=== PATIENT | female | born 1990 | race Caucasian/White ===

== ENCOUNTER 2020-07-15 09:55 | Emergency (ER) | payer OTHER ==
[2020-07-15 10:06] VITALS: BP 114/72; PULSE 78; RESP 16; TEMP 98.5
--- NOTE | 2020-07-15 10:08 | ED ---
General Adult HPI - General Source: patient, EMS Mode of arrival: EMS Limitations: no limitations <Robin Friend - Last Filed: 07/15/20 12:59> <Lesley Bryant - Last Filed: 07/22/20 00:02> - General Chief complaint: Nausea/Vomiting/Diarrhea Stated complaint: Vomiting Time Seen by Provider: 07/15/20 10:07 - History of Present Illness Initial comments: 30-year-old female with history of substance abuse presenting to the emergency department with chief complaint of nausea and vomiting. Patient states the last time she used heroin was about 2 days ago. States she also uses cocaine at the same time. Patient states she is currently at [facility] for substance abuse rehab. Patient states she is currently going through detox. States she has been vomiting for the past 2 days and barely had any fluid intake. Patient reports she has detox before and it felt just like this. Patient was brought to the ED via EMS and was given 4 mg of IV Zofran. (Robin Friend) - Related Data Home Medications Medication Instructions Recorded Confirmed No Known Home Medications 07/15/20 07/15/20 Allergies Allergy/AdvReac Type Severity Reaction Status Date / Time No Known Allergies Allergy Verified 07/15/20 10:28 Review of Systems ROS Other: All systems not noted in ROS Statement are negative. <Robin Friend - Last Filed: 07/15/20 12:59> ROS Other: All systems not noted in ROS Statement are negative. <Lesley Bryant - Last Filed: 07/22/20 00:02> ROS Statement: Those systems with pertinent positive or pertinent negative responses have been documented in the HPI. Past Medical History History of Any Multi-Drug Resistant Organisms: None Reported Smoking Status: Current every day smoker Past Alcohol Use History: None Reported Past Drug Use History: Cocaine, Heroin <Robin Friend - Last Filed: 07/15/20 12:59> General Exam Limitations: no limitations General appearance: alert, in no apparent distress Head exam: Present: atraumatic, normocephalic, normal inspection Eye exam: Present: normal appearance, PERRL, EOMI Pupils: Present: normal accommodation ENT exam: Present: normal exam, mucous membranes dry, mucous membranes moist Neck exam: Present: normal inspection, full ROM. Absent: tenderness Respiratory exam: Present: normal lung sounds bilaterally. Absent: respiratory distress, wheezes, rales Cardiovascular Exam: Present: regular rate, normal rhythm, normal heart sounds. Absent: systolic murmur, diastolic murmur GI/Abdominal exam: Present: soft. Absent: distended, tenderness, guarding, rebound Extremities exam: Present: normal inspection, full ROM. Absent: tenderness Back exam: Present: normal inspection, full ROM. Absent: tenderness, CVA tenderness (R), CVA tenderness (L) Neurological exam: Present: alert, oriented X3 Psychiatric exam: Present: normal affect, normal mood Skin exam: Present: warm, dry, intact, normal color <Robin Friend - Last Filed: 07/15/20 12:59> Course Vital Signs 07/15/20 09:58 Temperature 98.5 F Pulse Rate 78 Respiratory 16 Rate Blood Pressure 114/72 O2 Sat by Pulse 98 Oximetry Medical Decision Making - Lab Data Result diagrams: 07/15/20 10:39 07/15/20 10:39 <Robin Friend - Last Filed: 07/15/20 12:59> - Lab Data Result diagrams: 07/15/20 10:39 07/15/20 10:39 <Lesley Bryant - Last Filed: 07/22/20 00:02> - Medical Decision Making 30-year-old female presenting to the emergency room with a chief complaint of nausea vomiting. Patient is coming from [facility]. On physical examination patient has dry mucous membranes. She also had one vomiting episode in the emergency department. Patient was also given 4 mg of Zofran. She states this feels like her other heroin Detox. CBC reveals mild leukocytosis of 11 K which I suspect is secondary to the vomiting. CMP reveals mild elevation BUN, total protein and albumin likely secondary to dehydration. Patient also has plus for ketones and a urine. Urine drug screen reveals positive for opiates, methamphetamines and cocaine. She given 2 L of IV fluids. On Reevaluation, patient reports feeling better. Vital signs within normal limits. Patient will be discharged to [facility]. Return parameters discussed the patient is resting agreeable. Case discussed with physician. (Robin Friend) I was available for consultation in the emergency department. The history and physical exam were done by the midlevel provider. I was consulted for this patients care. I reviewed the case with the midlevel provider and based on their presentation of the patient, I agree with the assessment, medical decision making and plan of care as documented. Chart was dictated using [employer] dictation software. Attempts were made to correct any dictation errors however some typographical errors may persist. Patient was seen during a national state of emergency due to the Covid-19 pandemic. (Lesley Bryant) - Lab Data Lab Results 07/15/20 07/15/20 07/15/20 Range/Units 10:39 10:39 10:39 WBC 11.6 H (3.8-10.6) k/uL RBC 5.24 (3.80-5.40) m/uL Hgb 15.5 (11.4-16.0) gm/dL Hct 44.6 (34.0-46.0) % MCV 85.2 (80.0-100.0) fL MCH 29.6 (25.0-35.0) pg MCHC 34.7 (31.0-37.0) g/dL RDW 12.7 (11.5-15.5) % Plt Count 394 (150-450) k/uL MPV 7.6 Neutrophils % 85 % Lymphocytes % 8 % Monocytes % 5 % Eosinophils % 1 % Basophils % 0 % Neutrophils # 9.9 H (1.3-7.7) k/uL Lymphocytes # 0.9 L (1.0-4.8) k/uL Monocytes # 0.5 (0-1.0) k/uL Eosinophils # 0.1 (0-0.7) k/uL Basophils # 0.0 (0-0.2) k/uL Sodium 139 (137-145) mmol/L Potassium 3.6 (3.5-5.1) mmol/L Chloride 102 (98-107) mmol/L Carbon Dioxide 26 (22-30) mmol/L Anion Gap 11 mmol/L BUN 21 H (7-17) mg/dL Creatinine 0.74 (0.52-1.04) mg/dL Est GFR (CKD-EPI)AfAm >90 (>60 ml/min/1.73 sqM) Est GFR (CKD-EPI)NonAf >90 (>60 ml/min/1.73 sqM) Glucose 127 H (74-99) mg/dL Calcium 10.6 H (8.4-10.2) mg/dL Total Bilirubin 0.5 (0.2-1.3) mg/dL AST 22 (14-36) U/L ALT 16 (4-34) U/L Alkaline Phosphatase 77 (38-126) U/L Total Protein 9.1 H (6.3-8.2) g/dL Albumin 5.1 H (3.5-5.0) g/dL Urine Color Yellow Urine Appearance Clear (Clear) Urine pH 5.5 (5.0-8.0) Ur Specific [place] 1.045 H (1.001-1.035) Urine Protein 1+ H (Negative) Urine Glucose (UA) Negative (Negative) Urine Ketones 4+ H (Negative) Urine Blood Negative (Negative) Urine Nitrite Negative (Negative) Urine Bilirubin 1+ H (Negative) Urine Urobilinogen 2.0 (<2.0) mg/dL Ur Leukocyte Esterase Negative (Negative) Urine RBC 1 (0-5) /hpf Urine WBC 1 (0-5) /hpf Ur Squamous Epith Cells 2 (0-4) /hpf Urine Bacteria Occasional H (None) /hpf Urine Mucus Many H (None) /hpf Urine Opiates Screen Detected H (NotDetected) Ur Oxycodone Screen Not Detected (NotDetected) Urine Methadone Screen Not Detected (NotDetected) Ur Propoxyphene Screen Not Detected (NotDetected) Ur Barbiturates Screen Not Detected (NotDetected) U Tricyclic Antidepress Not Detected (NotDetected) Ur Phencyclidine Scrn Not Detected (NotDetected) Ur Amphetamines Screen Not Detected (NotDetected) U Methamphetamines Scrn Detected H (NotDetected) U Benzodiazepines Scrn Not Detected (NotDetected) Urine Cocaine Screen Detected H (NotDetected) U Marijuana (THC) Screen Not Detected (NotDetected) Disposition Is patient prescribed a controlled substance at d/c from ED?: No Time of Disposition: 12:38 <Robin Friend - Last Filed: 07/15/20 12:59> <Lesley Bryant - Last Filed: 07/22/20 00:02> Clinical Impression: Dehydration, Heroin withdrawal Disposition: HOME SELF-CARE Condition: Good Instructions (If sedation given, give patient instructions): Acute Nausea and Vomiting (ED) Additional Instructions: Return to emergency department if symptoms worsen. Referrals: None,Stated [Primary Care Provider] - 1-2 days
[2020-07-15] MEDS ORDERED: SODIUM CHLORIDE 0.9% 1,000 ML IV STA ×2 (10:17→11:30)
[2020-07-15 10:49] LABS: Basophils % (A) 0 %; Eosinophils # (A) 0.1 k/uL (0-0.7); Eosinophils % (A) 1 %; HCT 44.6 % (34.0-46.0); HGB 15.5 gm/dL (11.4-16.0); Lymphocytes # (A) 0.9 k/uL (1.0-4.8); Lymphocytes % (A) 8 %; MCH 29.6 pg (25.0-35.0); MCHC 34.7 g/dL (31.0-37.0); MCV 85.2 fL (80.0-100.0); Mean Platelet Volume 7.6; Monocytes # (A) 0.5 k/uL (0-1.0); Monocytes % (A) 5 %; Neutrophils # (A) 9.9 k/uL (1.3-7.7); Neutrophils % (A) 85 %; Platelet Count 394 k/uL (150-450); RBC 5.24 m/uL (3.80-5.40); RDW 12.7 % (11.5-15.5); WBC 11.6 k/uL (3.8-10.6)
[2020-07-15 10:55] LABS: Appearance,Urine Clear (Clear); Bacteria,Urine Occasional /hpf; Bilirubin,Urine 1+ (Negative); Blood,Urine Negative (Negative); Color,Urine Yellow; Glucose,Urine (UA) Negative (Negative); Ketones,Urine 4+ (Negative); Leukocyte Esterase,Urine Negative (Negative); Mucus,Urine Many /hpf; Nitrite,Urine Negative (Negative); PH, Urine 5.5 (5.0-8.0); Protein,Urine 1+ (Negative); RBC,Urine 1 /hpf (0-5); Specific Gravity,Urine 1.045 (1.001-1.035); Squamous Epithelial Cell,Urine 2 /hpf (0-4); WBC,Urine 1 /hpf (0-5)
[2020-07-15 10:59] LABS: ALT 16 U/L (4-34); AST 22 U/L (14-36); African American GFR (CKD) >90 (>60 ml/min/1.73 sqM); Albumin 5.1 g/dL (3.5-5.0); Alkaline Phosphatase 77 U/L (38-126); Anion Gap 11 mmol/L; Blood Urea Nitrogen 21 mg/dL (7-17); Calcium 10.6 mg/dL (8.4-10.2); Carbon Dioxide 26 mmol/L (22-30); Chloride 102 mmol/L (98-107); Glucose 127 mg/dL (74-99); Non-African American GFR(CKD) >90 (>60 ml/min/1.73 sqM); Potassium 3.6 mmol/L (3.5-5.1); Sodium 139 mmol/L (137-145); Total Bilirubin 0.5 mg/dL (0.2-1.3); Total Protein 9.1 g/dL (6.3-8.2)
[2020-07-15 11:19] LABS: Amphetamine Screen,Urine Not Detected (NotDetected); Barbiturate Screen,Urine Not Detected (NotDetected); Benzodiazepines Screen,Urine Not Detected (NotDetected); Cocaine Screen,Urine Detected (NotDetected); Methadone Screen, Urine Not Detected (NotDetected); Opiate Screen,Urine Detected (NotDetected); Oxycodone Screen, Urine Not Detected (NotDetected); Phencyclidine Screen,Urine Not Detected (NotDetected); Tricyclic Antidepressant,Urine Not Detected (NotDetected); Urn Cannabinoid Scrn Not Detected (NotDetected)
[2020-07-15] MEDS ORDERED: ONDANSETRON 4 MG/2 ML VIAL IVP STA (12:03)
== END 2020-07-15 15:42 | disposition home or self-care (01) ==
LOC: EC 09:55
DX: F11.23 Opioid dependence with withdrawal (principal); E86.0 Dehydration; F17.200 Nicotine dependence, unspecified, uncomplicated; D72.829 Elevated white blood cell count, unspecified; R79.89 Other specified abnormal findings of blood chemistry
CPT/HCPCS: 36415; 80053; 85025; 81001; 80306; 99285; 96374; 96361 ×4; J2405